=== PATIENT | female | born 1945 | race Caucasian/White ===

== ENCOUNTER 2016-07-21 18:55 | Emergency (ER) | payer BC ==
--- NOTE | 2016-07-21 20:17 | DIAGNOSTIC IMAGING REPORT ---
PROCEDURE: XR CHEST 1 VIEW INDICATION: SHORTNESS OF BREATH TECHNIQUE: Portable AP view (194 hours). COMPARISON: None. FINDINGS: Mild elevation or eventration of the hemidiaphragm is most likely chronic. Lungs are clear. Heart and mediastinum are normal. Mild degenerative changes of the thoracic spine. IMPRESSION: 1. Negative chest.
--- NOTE | 2016-07-21 21:12 | ED CLINICAL REPORT ---
Clinical Report - Physicians/Mid Levels [facility] [address], [place] [address] 07/21/2016 18:56 Patient: LIZ LOPEZ Time Seen: 19:34; initial patient contact. Arrived- By private vehicle. Historian- patient. HISTORY OF PRESENT ILLNESS Chief Complaint: HISTORY OF ASTHMA. This started about 3 days ago and is still present (persistent). It was gradual in onset and has been constant. The dyspnea is described as moderate. The dyspnea is worsened by cough (Better w/ rescue inhaler). No improvement of dyspnea with rest. The patient has had a cough and wheezing. No sputum production, fever, sweating episodes, chills or dyspnea on exertion. No chest pain or discomfort, calf pain, foot swelling or palpitations. Similar symptoms previously: Several times. Recent medical care: Not recently seen/assessed. REVIEW OF SYSTEMS No eye irritation, nausea, vomiting or headache. She has had a nasal discharge and sinus drainage. All systems otherwise negative, except as recorded above. PAST HISTORY ADHD - Attention Deficit Hyperactivity Disorder. Hypertension. SURGERIES: Appendectomy. B/L Foot Sx. Cholecystectomy. Hysterectomy. R Knee Sx. Medications: FLUoxetine HCl Oral. Aspirin Oral. Lisinopril Oral. Albuterol Sulfate Inhalation. Ipratropium [place] Inhalation. Allergies: Codeine. morphine. Penicillin. SOCIAL HISTORY Never smoker. No alcohol use or drug use. ADDITIONAL NOTES The nursing notes have been reviewed. PHYSICAL EXAM Vital Signs: 07/21/2016 19:05 BP: 169/64. HR: 82. RR: 22. O2 saturation: 96%. Temp: 98.6 F. Pain level now: 0/10. Have been reviewed. Hypertensive. Heart rate normal. Tachypneic. Temperature normal. Appearance: Alert. No acute distress. Eyes: Eyes normal inspection. ENT: Ears normal. Nose normal. Pharynx normal. Neck: Normal inspection. No jugular venous distention. CVS: Normal heart rate and rhythm. Heart sounds normal. Respiratory: No respiratory distress. Breath sounds normal. Skin: Skin warm and dry. Normal skin color. Extremities: No calf tenderness. No lower extremity edema. Neuro: Oriented X 3. No motor deficit. PROGRESS AND PROCEDURES Disposition: Discharged home in good and improved condition. Condition: good. CLINICAL IMPRESSION Mild persistent asthma with an acute exacerbation. No status asthmaticus, pneumonia, hypoxemia or acute respiratory failure. INSTRUCTIONS Avoid tobacco smoke. Your Current Medications: CONTINUE TAKING THE FOLLOWING MEDICATIONS: Albuterol Sulfate Inhalation. Aspirin Oral. FLUoxetine HCl Oral. Ipratropium [place] Inhalation. Lisinopril Oral. Prescription Medications: Tessalon Perles 100 mg: take 1 orally every 6 hours as needed for cough. Dispense fifteen (15). No refills. Substitution is permissible. Prednisone 20 mg: take 2 orally every day for 4 days. Dispense sufficient quantity. No refills. (Start on 07/22/16) Follow-up: Follow up with your doctor in about two days. Call for an appointment. Blood pressure screening was not performed during this visit because the patient has an active diagnosis of hypertension. (Electronically signed by Rebel Cho Dr. 07/21/2016 21:14)
--- NOTE | 2016-07-21 21:12 | ED NURSING NOTES ---
Clinical Report - Nurses [facility] [address] [place] [address] 07/21/2016 18:56 Patient: LIZ LOPEZ TRIAGE Triage time 19:00. Acuity: LEVEL 3. Chief Complaint: SHORTNESS OF BREATH and DIFFICULTY BREATHING. 19:13 07/21/16. Alert. No acute distress. SEPSIS SCREEN: Sepsis Screen. Negative (no infection suspected/documented). TRAVIS COMA SCORE: [place] Coma Scale: 15- eyes open spontaneously (4); best verbal response- oriented x 4 (5); best motor response- obeys commands (6). --19:13 Cecilia Busby R.N. 19:05 07/21/16. BP: 169/64. HR: 82. RR: 22. O2 saturation: 96%. Temp: 98.6 F. Pain level now: 0/10. --19:13 Cecilia Busby R.N. Weight: 91.1 kg stated. Height/Length: 64 inches Per Patient. BMI: 34.5. --19:12 Cecilia Busby R.N. Medications Ipratropium [place] Inhalation. --19:07 Cecilia Busby R.N. Albuterol Sulfate Inhalation. --19:07 Cecilia Busby R.N. Lisinopril Oral. --19:07 Cecilia Busby R.N. Aspirin Oral. --19:07 Cecilia Busby R.N. FLUoxetine HCl Oral. --19:08 Cecilia Busby R.N. Allergies Codeine. morphine. Penicillin. --19:08 Cecilia Busby R.N. History Arrived by private vehicle. Historian: patient and family. Accompanied by family. Primary physician ([facility]). This started today. ( Patient's states she has had a cold for a few days and her breathing has progressively worsened.). She has had a cough. ( Patient states she feels "like someone is sitting on my chest"). 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 PAST MEDICAL HX: Immunizations: up-to-date. Denies current . ( Patient states she has been told that she has had asthma and that she does not. Patient's states the albuterol often helps when she is short of breath.). SOCIAL HX: Never smoker. No alcohol use or drug use. FALL RISK ASSESSMENT: Fall risk assessment completed. No fall risk identified. NUTRITIONAL RISK ASSESSMENT: The nutritional risk assessment revealed no deficiencies. FUNCTIONAL ASSESSMENT: Functional assessment: no impairments noted. LEARNING NEEDS ASSESSMENT: The learning needs assessment revealed no barriers. SKIN INTEGRITY ASSESSMENT: Skin integrity risk assessment completed. No skin integrity risk identified. --19:13 Cecilia Busby R.N. PROBLEMS: ADHD - Attention Deficit Hyperactivity Disorder. Hypertension. --19:08 Cecilia Busby R.N. ADDITIONAL SURGERIES: Appendectomy. B/L Foot Sx. Cholecystectomy. Hysterectomy. R Knee Sx. --19:08 Cecilia Busby R.N. Interventions ID band on patient. To treatment room. --19:13 Cecilia Busby R.N. PHYSICAL ASSESSMENT 19:21 07/21/16. Ambulatory to room. GENERAL / NEURO / PSYCH: Alert. Oriented X 4. Appears in distress. HEENT: Mucous membranes are pink. RESPIRATORY: Mild respiratory distress. The patient can speak in full sentences. Cough productive of white sputum. Expiratory bilateral wheezes diffusely. CVS: Capillary refill less than 2 seconds. GI / : Abdomen soft and nontender. SKIN: Skin is warm and dry. Normal skin turgor. --19:21 Cecilia Busby R.N. NURSING PROGRESS NOTES Pulse oximeter and NIBP monitor placed on patient. Patient gowned. Head of bed elevated. Two patient identifiers checked. Call light placed in reach. Bed placed in lowest position. Brakes of bed on. Patient ready for evaluation- chart flagged and notification provided. Patient informed about reason for wait and about plan of care. --19:22 Cecilia Busby R.N. 19:15 07/21/2016 Site #1 started via IV in the left hand with an 20g angiocath; one attempt. Blood drawn: rainbow set. Labeled in the presence of the patient and sent to the lab. Saline lock flushed with 10 mL saline. --20:45 Cecilia Busby R.N. 20:06 07/21/2016 Prednisone PO Tablets 40 mg given. Allergies verified and confirmed 5 rights. --20:06 Cecilia Busby R.N. 20:45 07/21/2016 Benadryl (DiphenhydrAMINE HCl) IVP 25 mg given over 2 minute(s) via site #1. Allergies verified, confirmed 5 rights and sedative warning given to the patient. IV patency established. IV site checked: no pain, redness, or swelling. IV flushed thoroughly pre- and post-medication administration. IVP given by RN. --20:45 Cecilia Busby R.N. 20:46 07/21/16. BP: 147/58. HR: 77. RR: 20. O2 saturation: 96%. Temp: deferred. Pain level now: 0/10. --20:46 Cecilia Busby R.N. DISPOSITION / DISCHARGE 21:40 07/21/16. No learning barriers present. Discharge instructions provided and reviewed with the patient and spouse. Reviewed warnings. Reviewed medication(s). Treatments reviewed. Patient and spouse verbalized understanding. Written instructions provided in [place]. The patient was discharged home and accompanied by spouse. She left the Emergency Department ambulatory and via private vehicle. Spouse driving. --21:40 Cecilia Busby R.N. 20:46 07/21/16. BP: 147/58. HR: 77. RR: 20. O2 saturation: 96%. Temp: deferred. Pain level now: 0/10. --21:40 Cecilia Busby R.N. Locked/Released at 07/22/2016 0:34 by Cecilia Busby R.N.
--- NOTE | 2016-07-21 21:12 | ED CLINICAL REPORT ---
Clinical Report - Physicians/Mid Levels [facility] [address], [place] [address] 07/21/2016 18:56 Patient: LIZ LOPEZ Time Seen: 19:34; initial patient contact. Arrived- By private vehicle. Historian- patient. HISTORY OF PRESENT ILLNESS Chief Complaint: HISTORY OF ASTHMA. This started about 3 days ago and is still present (persistent). It was gradual in onset and has been constant. The dyspnea is described as moderate. The dyspnea is worsened by cough (Better w/ rescue inhaler). No improvement of dyspnea with rest. The patient has had a cough and wheezing. No sputum production, fever, sweating episodes, chills or dyspnea on exertion. No chest pain or discomfort, calf pain, foot swelling or palpitations. Similar symptoms previously: Several times. Recent medical care: Not recently seen/assessed. REVIEW OF SYSTEMS No eye irritation, nausea, vomiting or headache. She has had a nasal discharge and sinus drainage. All systems otherwise negative, except as recorded above. PAST HISTORY ADHD - Attention Deficit Hyperactivity Disorder. Hypertension. SURGERIES: Appendectomy. B/L Foot Sx. Cholecystectomy. Hysterectomy. R Knee Sx. Medications: FLUoxetine HCl Oral. Aspirin Oral. Lisinopril Oral. Albuterol Sulfate Inhalation. Ipratropium [place] Inhalation. Allergies: Codeine. morphine. Penicillin. SOCIAL HISTORY Never smoker. No alcohol use or drug use. ADDITIONAL NOTES The nursing notes have been reviewed. PHYSICAL EXAM Vital Signs: 07/21/2016 19:05 BP: 169/64. HR: 82. RR: 22. O2 saturation: 96%. Temp: 98.6 F. Pain level now: 0/10. Have been reviewed. Hypertensive. Heart rate normal. Tachypneic. Temperature normal. Appearance: Alert. No acute distress. Eyes: Eyes normal inspection. ENT: Ears normal. Nose normal. Pharynx normal. Neck: Normal inspection. No jugular venous distention. CVS: Normal heart rate and rhythm. Heart sounds normal. Respiratory: No respiratory distress. Breath sounds normal. Skin: Skin warm and dry. Normal skin color. Extremities: No calf tenderness. No lower extremity edema. Neuro: Oriented X 3. No motor deficit. PROGRESS AND PROCEDURES Disposition: Discharged home in good and improved condition. Condition: good. CLINICAL IMPRESSION Mild persistent asthma with an acute exacerbation. No status asthmaticus, pneumonia, hypoxemia or acute respiratory failure. INSTRUCTIONS Avoid tobacco smoke. Your Current Medications: CONTINUE TAKING THE FOLLOWING MEDICATIONS: Albuterol Sulfate Inhalation. Aspirin Oral. FLUoxetine HCl Oral. Ipratropium [place] Inhalation. Lisinopril Oral. Prescription Medications: Tessalon Perles 100 mg: take 1 orally every 6 hours as needed for cough. Dispense fifteen (15). No refills. Substitution is permissible. Prednisone 20 mg: take 2 orally every day for 4 days. Dispense sufficient quantity. No refills. (Start on 07/22/16) Follow-up: Follow up with your doctor in about two days. Call for an appointment. Blood pressure screening was not performed during this visit because the patient has an active diagnosis of hypertension. (Electronically signed by Rebel Cho Dr. 07/21/2016 21:14)
--- NOTE | 2016-07-21 21:12 | ED ORDER SUMMARY ---
..... Patient: LIZ LOPEZ OrderSheet [facility] VisitID: [id number] [place] [address] 71y, F Registration Date/Time: 07/21/2016 ORDER SHEET Weight: 91.1 kg (stated) Allergies: Codeine, morphine, Penicillin GENERAL ORDERS: Chest 1V Urgent (19:41 07/21/2016 Aurora Panda) (Ack 19:43 AMcQuoid ER Tech1) (19:48 RFay) MEDICATION ORDERS: Prednisone PO 40 mg (NOW) (19:41 07/21/2016 Aurora Panda) (Ack 20:02 RMarsden R.N.) (20:06 RMarsden R.N.) IV FLUIDS: Benadryl IV 25 mg (NOW) (20:39 07/21/2016 Aurora Panda) (Ack 20:39 RMarsden R.N.) (20:45 RMarsden R.N.) ORDER SHEET NOTES: [Electronically signed by Rebel Cho Dr. (21:14 07/21/2016)] [Electronically signed by Cecilia Busby R.N. (00:34 07/22/2016)] [Electronically locked/signed by Cecilia Busby R.N. (00:34 07/22/2016)]
--- NOTE | 2016-07-21 21:12 | ED NURSING NOTES ---
Clinical Report - Nurses [facility] [address] [place] [address] 07/21/2016 18:56 Patient: LIZ LOPEZ TRIAGE Triage time 19:00. Acuity: LEVEL 3. Chief Complaint: SHORTNESS OF BREATH and DIFFICULTY BREATHING. 19:13 07/21/16. Alert. No acute distress. SEPSIS SCREEN: Sepsis Screen. Negative (no infection suspected/documented). TRAVIS COMA SCORE: [place] Coma Scale: 15- eyes open spontaneously (4); best verbal response- oriented x 4 (5); best motor response- obeys commands (6). --19:13 Cecilia Busby R.N. 19:05 07/21/16. BP: 169/64. HR: 82. RR: 22. O2 saturation: 96%. Temp: 98.6 F. Pain level now: 0/10. --19:13 Cecilia Busby R.N. Weight: 91.1 kg stated. Height/Length: 64 inches Per Patient. BMI: 34.5. --19:12 Cecilia Busby R.N. Medications Ipratropium [place] Inhalation. --19:07 Cecilia Busby R.N. Albuterol Sulfate Inhalation. --19:07 Cecilia Busby R.N. Lisinopril Oral. --19:07 Cecilia Busby R.N. Aspirin Oral. --19:07 Cecilia Busby R.N. FLUoxetine HCl Oral. --19:08 Cecilia Busby R.N. Allergies Codeine. morphine. Penicillin. --19:08 Cecilia Busby R.N. History Arrived by private vehicle. Historian: patient and family. Accompanied by family. Primary physician ([facility]). This started today. ( Patient's states she has had a cold for a few days and her breathing has progressively worsened.). She has had a cough. ( Patient states she feels "like someone is sitting on my chest"). Treatment SCHEDULING CLERK: (albuterol, ipatropium). PAST MEDICAL HX: Immunizations: up-to-date. Denies current . ( Patient states she has been told that she has had asthma and that she does not. Patient's states the albuterol often helps when she is short of breath.). SOCIAL HX: Never smoker. No alcohol use or drug use. FALL RISK ASSESSMENT: Fall risk assessment completed. No fall risk identified. NUTRITIONAL RISK ASSESSMENT: The nutritional risk assessment revealed no deficiencies. FUNCTIONAL ASSESSMENT: Functional assessment: no impairments noted. LEARNING NEEDS ASSESSMENT: The learning needs assessment revealed no barriers. SKIN INTEGRITY ASSESSMENT: Skin integrity risk assessment completed. No skin integrity risk identified. --19:13 Cecilia Busby R.N. PROBLEMS: ADHD - Attention Deficit Hyperactivity Disorder. Hypertension. --19:08 Cecilia Busby R.N. ADDITIONAL SURGERIES: Appendectomy. B/L Foot Sx. Cholecystectomy. Hysterectomy. R Knee Sx. --19:08 Cecilia Busby R.N. Interventions ID band on patient. To treatment room. --19:13 Cecilia Busby R.N. PHYSICAL ASSESSMENT 19:21 07/21/16. Ambulatory to room. GENERAL / NEURO / PSYCH: Alert. Oriented X 4. Appears in distress. HEENT: Mucous membranes are pink. RESPIRATORY: Mild respiratory distress. The patient can speak in full sentences. Cough productive of white sputum. Expiratory bilateral wheezes diffusely. CVS: Capillary refill less than 2 seconds. GI / : Abdomen soft and nontender. SKIN: Skin is warm and dry. Normal skin turgor. --19:21 Cecilia Busby R.N. NURSING PROGRESS NOTES Pulse oximeter and NIBP monitor placed on patient. Patient gowned. Head of bed elevated. Two patient identifiers checked. Call light placed in reach. Bed placed in lowest position. Brakes of bed on. Patient ready for evaluation- chart flagged and notification provided. Patient informed about reason for wait and about plan of care. --19:22 Cecilia Busby R.N. 19:15 07/21/2016 Site #1 started via IV in the left hand with an 20g angiocath; one attempt. Blood drawn: rainbow set. Labeled in the presence of the patient and sent to the lab. Saline lock flushed with 10 mL saline. --20:45 Cecilia Busby R.N. 20:06 07/21/2016 Prednisone PO Tablets 40 mg given. Allergies verified and confirmed 5 rights. --20:06 Cecilia Busby R.N. 20:45 07/21/2016 Benadryl (DiphenhydrAMINE HCl) IVP 25 mg given over 2 minute(s) via site #1. Allergies verified, confirmed 5 rights and sedative warning given to the patient. IV patency established. IV site checked: no pain, redness, or swelling. IV flushed thoroughly pre- and post-medication administration. IVP given by RN. --20:45 Cecilia Busby R.N. 20:46 07/21/16. BP: 147/58. HR: 77. RR: 20. O2 saturation: 96%. Temp: deferred. Pain level now: 0/10. --20:46 Cecilia Busby R.N. DISPOSITION / DISCHARGE 21:40 07/21/16. No learning barriers present. Discharge instructions provided and reviewed with the patient and spouse. Reviewed warnings. Reviewed medication(s). Treatments reviewed. Patient and spouse verbalized understanding. Written instructions provided in [place]. The patient was discharged home and accompanied by spouse. She left the Emergency Department ambulatory and via private vehicle. Spouse driving. --21:40 Cecilia Busby R.N. 20:46 07/21/16. BP: 147/58. HR: 77. RR: 20. O2 saturation: 96%. Temp: deferred. Pain level now: 0/10. --21:40 Cecilia Busby R.N. Locked/Released at 07/22/2016 0:34 by Cecilia Busby R.N.
--- NOTE | 2016-07-21 21:12 | ED ORDER SUMMARY ---
..... Patient: LIZ LOPEZ OrderSheet [facility] VisitID: [id number] [place] [address] 71y, F Registration Date/Time: 07/21/2016 ORDER SHEET Weight: 91.1 kg (stated) Allergies: Codeine, morphine, Penicillin GENERAL ORDERS: Chest 1V Urgent (19:41 07/21/2016 Aurora Panda) (Ack 19:43 AMcQuoid ER Tech1) (19:48 RFay) MEDICATION ORDERS: Prednisone PO 40 mg (NOW) (19:41 07/21/2016 Aurora Panda) (Ack 20:02 RMarsden R.N.) (20:06 RMarsden R.N.) IV FLUIDS: Benadryl IV 25 mg (NOW) (20:39 07/21/2016 Aurora Panda) (Ack 20:39 RMarsden R.N.) (20:45 RMarsden R.N.) ORDER SHEET NOTES: [Electronically signed by Rebel Cho Dr. (21:14 07/21/2016)] [Electronically signed by Cecliia Busby R.N. (00:34 07/22/2016)] [Electronically locked/signed by Cecilia Busby R.N. (00:34 07/22/2016)]
--- NOTE | 2016-07-22 00:34 | ED DISCHARGE INSTRUCTIONS ---
Patient: LIZ LOPEZ General Instructions [facility] VisitID: [id number] [place] [address] 71y, F Registration Date/Time: 07/21/2016 Mild persistent asthma with an acute exacerbation. No status asthmaticus, pneumonia, hypoxemia or acute respiratory failure. INSTRUCTIONS Avoid tobacco smoke. Your Current Medications: CONTINUE TAKING THE FOLLOWING MEDICATIONS: Albuterol Sulfate Inhalation. Aspirin Oral. FLUoxetine HCl Oral. Ipratropium [place] Inhalation. Lisinopril Oral. Prescription Medications: Tessalon Perles 100 mg: take 1 orally every 6 hours as needed for cough. Dispense fifteen (15). No refills. Substitution is permissible. Prednisone 20 mg: take 2 orally every day for 4 days. Dispense sufficient quantity. No refills. (Start on 07/22/16) Follow-up: Follow up with your doctor in about two days. Call for an appointment. Blood pressure screening was not performed during this visit because the patient has an active diagnosis of hypertension. ADDITIONAL INFORMATION Asthma [Adult] Asthma is a disease where the small air passages within the lung go into spasm and restrict the flow of air. Inflammation and swelling of the airways cause further restriction. During an acute asthma attack, these factors cause difficulty breathing, wheezing, cough and chest tightness. An asthma attack can be triggered by many things. Common triggers include the common cold, bronchitis, pneumonia, irritants such as smoke or pullutants in the air, emotional upset and heavy exercise. Inmany adults with asthma, allergies todust, mold, pollen and animal dander can cause an asthma attack. Skipping doses of daily asthma medicine can also bring on an asthma attack. Asthma can be controlled with proper medicines and decreased exposure to known allergens. Home Care: Take prescribed medicine exactly at the times advised. If you have a hand-held inhaler or aerosol breathing medicine, do not use it more than once every four hours, unless told to do so. (If you need this medicine more than every four hours, you may need to return to the Emergency Room.) If prescribed an antibiotic or prednisone, take all of the medicine even if you are feeling better after a few days. Do not smoke. Avoid being exposed to the smoke of others. Some persons with asthma have worsening of their symptoms when they take aspirin and non-steroidal medicines like ibuprofen (Motrin, Advil) and naproxen (Aleve, Naprosyn). Talk to your doctor if you think this may apply to you. Acetaminophen (Tylenol)should be safe to use. Follow Up with your doctor, or as advised by our staff. Always bring all of your current medicines with you for your doctor to see. If you do not already have one, talk to your doctor about developing a personalized "Asthma Action Plan." [NOTE: A pneumococcal vaccine and yearly flu shot (every fall) are recommended. Ask your doctor about this.] Get Prompt Medical Attention if any of the following occur: Increased wheezing or shortness of breath Need to use your inhalers more often than usual without relief Fever of 100.4F (38C) or higher, or as directed by your healthcare provider Coughing up lots of dark-colored or bloody sputum (mucus) Chest pain with each breath You do not start to improve within 24 hours Call 911 If Any Of The Following Occur : Trouble walking or talking because of shortness of breath If you use a peak flow meter andyou are still in the red zone (less than 50 percent) 15 minutes after using inhaler medication Lips or fingernails turning razo or blue Benzonatate Oral capsule, liquid filled What is this medicine? BENZONATATE (dwayne WAYLON na mckoen) is used to treat cough. How should I use this medicine? Take this medicine by mouth with a glass of water. Follow the directions on the prescription label. Avoid breaking, chewing, or sucking the capsule, as this can cause serious side effects. Take your medicine at regular intervals. Do not take your medicine more often than directed. Talk to your chemical engineering intern regarding the use of this medicine in children. While this drug may be prescribed for children as young as 10 years old for selected conditions, precautions do apply. What side effects may I notice from receiving this medicine? Side effects that you should report to your doctor or health rn progressive care as soon as possible: allergic reactions like skin rash, itching or hives, swelling of the face, lips, or tongue breathing problems chest pain confusion or hallucinations irregular heartbeat numbness of mouth or throat seizures Side effects that usually do not require medical attention (report to your doctor or health rn progressive care if they continue or are bothersome): burning feeling in the eyes constipation headache nasal congestion stomach upset What may interact with this medicine? Do not take this medicine with any of the following medications: MAOIs like Carbex, Eldepryl, Marplan, Nardil, and Parnate What if I miss a dose? If you miss a dose, take it as soon as you can. If it is almost time for your next dose, take only that dose. Do not take double or extra doses. Where should I keep my medicine? Keep out of the reach of children. Store at room temperature between 15 and 30 degrees C (59 and 86 degrees F). Keep tightly closed. Protect from light and moisture. Throw away any unused medicine after the expiration date. What should I tell my health care provider before I take this medicine? They need to know if you have any of these conditions: kidney or liver disease an unusual or allergic reaction to benzonatate, anesthetics, other medicines, foods, dyes, or preservatives or trying to get breast-feeding What should I watch for while using this medicine? Tell your doctor if your symptoms do not improve or if they get worse. If you have a high fever, skin rash, or headache, see your health rn progressive care. You may get drowsy or dizzy. Do not drive, use machinery, or do anything that needs mental alertness until you know how this medicine affects you. Do not sit or stand up quickly, especially if you are an older patient. This reduces the risk of dizzy or fainting spells. Prednisone Oral tablet What is this medicine? PREDNISONE (PRED ni sone) is a corticosteroid. It is commonly used to treat inflammation of the skin, joints, lungs, and other organs. Common conditions treated include asthma, allergies, and arthritis. It is also used for other conditions, such as blood disorders and diseases of the adrenal glands. How should I use this medicine? Take this medicine by mouth with a glass of water. Follow the directions on the prescription label. Take this medicine with food. If you are taking this medicine once a day, take it in the morning. Do not take more medicine than you are told to take. Do not suddenly stop taking your medicine because you may develop a severe reaction. Your doctor will tell you how much medicine to take. If your doctor wants you to stop the medicine, the dose may be slowly lowered over time to avoid any side effects. Talk to your chemical engineering intern regarding the use of this medicine in children. Special care may be needed. What side effects may I notice from receiving this medicine? Side effects that you should report to your doctor or health rn progressive care as soon as possible: allergic reactions like skin rash, itching or hives, swelling of the face, lips, or tongue changes in emotions or moods changes in vision depressed mood eye pain fever or chills, cough, sore throat, pain or difficulty passing urine increased thirst swelling of ankles, feet Side effects that usually do not require medical attention (report to your doctor or health rn progressive care if they continue or are bothersome): confusion, excitement, restlessness headache nausea, vomiting skin problems, acne, thin and shiny skin trouble sleeping weight gain What may interact with this medicine? Do not take this medicine with any of the following medications: metyrapone mifepristone This medicine may also interact with the following medications: aminoglutethimide amphotericin B aspirin and aspirin-like medicines barbiturates certain medicines for diabetes, like glipizide or glyburide cholestyramine cholinesterase inhibitors cyclosporine digoxin diuretics ephedrine female hormones, like estrogens and control pills isoniazid ketoconazole NSAIDS, medicines for pain and inflammation, like ibuprofen or naproxen phenytoin rifampin toxoids vaccines warfarin What if I miss a dose? If you miss a dose, take it as soon as you can. If it is almost time for your next dose, talk to your doctor or health rn progressive care. You may need to miss a dose or take an extra dose. Do not take double or extra doses without advice. Where should I keep my medicine? Keep out of the reach of children. Store at room temperature between 15 and 30 degrees C (59 and 86 degrees F). Protect from light. Keep container tightly closed. Throw away any unused medicine after the expiration date. What should I tell my health care provider before I take this medicine? They need to know if you have any of these conditions: Jackson's syndrome diabetes glaucoma heart disease high blood pressure infection (especially a virus infection such as chickenpox, cold sores, or herpes) kidney disease liver disease mental illness myasthenia gravis osteoporosis seizures stomach or intestine problems thyroid disease an unusual or allergic reaction to lactose, prednisone, other medicines, foods, dyes, or preservatives or trying to get breast-feeding What should I watch for while using this medicine? Visit your doctor or health rn progressive care for regular checks on your progress. If you are taking this medicine over a prolonged period, carry an identification card with your name and address, the type and dose of your medicine, and your doctor's name and address. This medicine may increase your risk of getting an infection. Tell your doctor or health rn progressive care if you are around anyone with measles or chickenpox, or if you develop sores or blisters that do not heal properly. If you are going to have surgery, tell your doctor or health rn progressive care that you have taken this medicine within the last twelve months. Ask your doctor or health rn progressive care about your diet. You may need to lower the amount of salt you eat. This medicine may affect blood sugar levels. If you have diabetes, check with your doctor or health rn progressive care before you change your diet or the dose of your diabetic medicine. You have been given the following additional information: Asthma, Acute (Adult) Benzonatate Oral capsule, liquid filled Prednisone Oral tablet (Electronically signed by Rebel Cho Dr. 07/21/2016 21:14)
--- NOTE | 2016-07-22 00:34 | ED MAR SUMMARY ---
..... Medication Administration Record [facility] [address] [place] [address] Patient: LIZ LOPEZ Visit ID: [id number] 71y, F Weight: 91.1 kg Height/Length: 64 in BMI: 34.5 ALLERGIES: Codeine, morphine, Penicillin Given 20:06 07/21/2016 Cecilia Busby RMichelle Medication Administered: PREDNISONE [PO], Dose: 40 mg Tablets PO. Medication Ordered: Prednisone PO 40 mg (NOW). Given 20:45 07/21/2016 Cecilia Busby, RGiuliaN. Medication Administered: BENADRYL [IVP] (DIPHENHYDRAMINE HCL), Dose: 25 mg IVP over 2 minute(s), Site: #1 left hand. Medication Ordered: Benadryl IV 25 mg (NOW).
--- NOTE | 2016-07-22 00:34 | ED DISCHARGE INSTRUCTIONS ---
Patient: LIZ LOPEZ General Instructions [facility] VisitID: [id number] [place] [address] 71y, F Registration Date/Time: 07/21/2016 Mild persistent asthma with an acute exacerbation. No status asthmaticus, pneumonia, hypoxemia or acute respiratory failure. INSTRUCTIONS Avoid tobacco smoke. Your Current Medications: CONTINUE TAKING THE FOLLOWING MEDICATIONS: Albuterol Sulfate Inhalation. Aspirin Oral. FLUoxetine HCl Oral. Ipratropium [place] Inhalation. Lisinopril Oral. Prescription Medications: Tessalon Perles 100 mg: take 1 orally every 6 hours as needed for cough. Dispense fifteen (15). No refills. Substitution is permissible. Prednisone 20 mg: take 2 orally every day for 4 days. Dispense sufficient quantity. No refills. (Start on 07/22/16) Follow-up: Follow up with your doctor in about two days. Call for an appointment. Blood pressure screening was not performed during this visit because the patient has an active diagnosis of hypertension. ADDITIONAL INFORMATION Asthma [Adult] Asthma is a disease where the small air passages within the lung go into spasm and restrict the flow of air. Inflammation and swelling of the airways cause further restriction. During an acute asthma attack, these factors cause difficulty breathing, wheezing, cough and chest tightness. An asthma attack can be triggered by many things. Common triggers include the common cold, bronchitis, pneumonia, irritants such as smoke or pullutants in the air, emotional upset and heavy exercise. Inmany adults with asthma, allergies todust, mold, pollen and animal dander can cause an asthma attack. Skipping doses of daily asthma medicine can also bring on an asthma attack. Asthma can be controlled with proper medicines and decreased exposure to known allergens. Home Care: Take prescribed medicine exactly at the times advised. If you have a hand-held inhaler or aerosol breathing medicine, do not use it more than once every four hours, unless told to do so. (If you need this medicine more than every four hours, you may need to return to the Emergency Room.) If prescribed an antibiotic or prednisone, take all of the medicine even if you are feeling better after a few days. Do not smoke. Avoid being exposed to the smoke of others. Some persons with asthma have worsening of their symptoms when they take aspirin and non-steroidal medicines like ibuprofen (Motrin, Advil) and naproxen (Aleve, Naprosyn). Talk to your doctor if you think this may apply to you. Acetaminophen (Tylenol)should be safe to use. Follow Up with your doctor, or as advised by our staff. Always bring all of your current medicines with you for your doctor to see. If you do not already have one, talk to your doctor about developing a personalized "Asthma Action Plan." [NOTE: A pneumococcal vaccine and yearly flu shot (every fall) are recommended. Ask your doctor about this.] Get Prompt Medical Attention if any of the following occur: Increased wheezing or shortness of breath Need to use your inhalers more often than usual without relief Fever of 100.4F (38C) or higher, or as directed by your healthcare provider Coughing up lots of dark-colored or bloody sputum (mucus) Chest pain with each breath You do not start to improve within 24 hours Call 911 If Any Of The Following Occur : Trouble walking or talking because of shortness of breath If you use a peak flow meter andyou are still in the red zone (less than 50 percent) 15 minutes after using inhaler medication Lips or fingernails turning razo or blue Benzonatate Oral capsule, liquid filled What is this medicine? BENZONATATE (dwayne WAYLON na mckeon) is used to treat cough. How should I use this medicine? Take this medicine by mouth with a glass of water. Follow the directions on the prescription label. Avoid breaking, chewing, or sucking the capsule, as this can cause serious side effects. Take your medicine at regular intervals. Do not take your medicine more often than directed. Talk to your photonics engineering technologist regarding the use of this medicine in children. While this drug may be prescribed for children as young as 10 years old for selected conditions, precautions do apply. What side effects may I notice from receiving this medicine? Side effects that you should report to your doctor or health health care coordinator as soon as possible: allergic reactions like skin rash, itching or hives, swelling of the face, lips, or tongue breathing problems chest pain confusion or hallucinations irregular heartbeat numbness of mouth or throat seizures Side effects that usually do not require medical attention (report to your doctor or health health care coordinator if they continue or are bothersome): burning feeling in the eyes constipation headache nasal congestion stomach upset What may interact with this medicine? Do not take this medicine with any of the following medications: MAOIs like Carbex, Eldepryl, Marplan, Nardil, and Parnate What if I miss a dose? If you miss a dose, take it as soon as you can. If it is almost time for your next dose, take only that dose. Do not take double or extra doses. Where should I keep my medicine? Keep out of the reach of children. Store at room temperature between 15 and 30 degrees C (59 and 86 degrees F). Keep tightly closed. Protect from light and moisture. Throw away any unused medicine after the expiration date. What should I tell my health care provider before I take this medicine? They need to know if you have any of these conditions: kidney or liver disease an unusual or allergic reaction to benzonatate, anesthetics, other medicines, foods, dyes, or preservatives or trying to get breast-feeding What should I watch for while using this medicine? Tell your doctor if your symptoms do not improve or if they get worse. If you have a high fever, skin rash, or headache, see your health health care coordinator. You may get drowsy or dizzy. Do not drive, use machinery, or do anything that needs mental alertness until you know how this medicine affects you. Do not sit or stand up quickly, especially if you are an older patient. This reduces the risk of dizzy or fainting spells. Prednisone Oral tablet What is this medicine? PREDNISONE (PRED ni sone) is a corticosteroid. It is commonly used to treat inflammation of the skin, joints, lungs, and other organs. Common conditions treated include asthma, allergies, and arthritis. It is also used for other conditions, such as blood disorders and diseases of the adrenal glands. How should I use this medicine? Take this medicine by mouth with a glass of water. Follow the directions on the prescription label. Take this medicine with food. If you are taking this medicine once a day, take it in the morning. Do not take more medicine than you are told to take. Do not suddenly stop taking your medicine because you may develop a severe reaction. Your doctor will tell you how much medicine to take. If your doctor wants you to stop the medicine, the dose may be slowly lowered over time to avoid any side effects. Talk to your photonics engineering technologist regarding the use of this medicine in children. Special care may be needed. What side effects may I notice from receiving this medicine? Side effects that you should report to your doctor or health health care coordinator as soon as possible: allergic reactions like skin rash, itching or hives, swelling of the face, lips, or tongue changes in emotions or moods changes in vision depressed mood eye pain fever or chills, cough, sore throat, pain or difficulty passing urine increased thirst swelling of ankles, feet Side effects that usually do not require medical attention (report to your doctor or health health care coordinator if they continue or are bothersome): confusion, excitement, restlessness headache nausea, vomiting skin problems, acne, thin and shiny skin trouble sleeping weight gain What may interact with this medicine? Do not take this medicine with any of the following medications: metyrapone mifepristone This medicine may also interact with the following medications: aminoglutethimide amphotericin B aspirin and aspirin-like medicines barbiturates certain medicines for diabetes, like glipizide or glyburide cholestyramine cholinesterase inhibitors cyclosporine digoxin diuretics ephedrine female hormones, like estrogens and control pills isoniazid ketoconazole NSAIDS, medicines for pain and inflammation, like ibuprofen or naproxen phenytoin rifampin toxoids vaccines warfarin What if I miss a dose? If you miss a dose, take it as soon as you can. If it is almost time for your next dose, talk to your doctor or health health care coordinator. You may need to miss a dose or take an extra dose. Do not take double or extra doses without advice. Where should I keep my medicine? Keep out of the reach of children. Store at room temperature between 15 and 30 degrees C (59 and 86 degrees F). Protect from light. Keep container tightly closed. Throw away any unused medicine after the expiration date. What should I tell my health care provider before I take this medicine? They need to know if you have any of these conditions: [place]'s syndrome diabetes glaucoma heart disease high blood pressure infection (especially a virus infection such as chickenpox, cold sores, or herpes) kidney disease liver disease mental illness myasthenia gravis osteoporosis seizures stomach or intestine problems thyroid disease an unusual or allergic reaction to lactose, prednisone, other medicines, foods, dyes, or preservatives or trying to get breast-feeding What should I watch for while using this medicine? Visit your doctor or health health care coordinator for regular checks on your progress. If you are taking this medicine over a prolonged period, carry an identification card with your name and address, the type and dose of your medicine, and your doctor's name and address. This medicine may increase your risk of getting an infection. Tell your doctor or health health care coordinator if you are around anyone with measles or chickenpox, or if you develop sores or blisters that do not heal properly. If you are going to have surgery, tell your doctor or health health care coordinator that you have taken this medicine within the last twelve months. Ask your doctor or health health care coordinator about your diet. You may need to lower the amount of salt you eat. This medicine may affect blood sugar levels. If you have diabetes, check with your doctor or health health care coordinator before you change your diet or the dose of your diabetic medicine. You have been given the following additional information: Asthma, Acute (Adult) Benzonatate Oral capsule, liquid filled Prednisone Oral tablet (Electronically signed by Rebel Cho Dr. 07/21/2016 21:14)
--- NOTE | 2016-07-22 00:34 | ED MAR SUMMARY ---
..... Medication Administration Record [facility] [address] [place] [address] Patient: LIZ LOPEZ Visit ID: [id number] 71y, F Weight: 91.1 kg Height/Length: 64 in BMI: 34.5 ALLERGIES: Codeine, morphine, Penicillin Given 20:06 07/21/2016 Cecilia Busby RMichelle Medication Administered: PREDNISONE [PO], Dose: 40 mg Tablets PO. Medication Ordered: Prednisone PO 40 mg (NOW). Given 20:45 07/21/2016 Cecilia Busby, RGiuliaN. Medication Administered: BENADRYL [IVP] (DIPHENHYDRAMINE HCL), Dose: 25 mg IVP over 2 minute(s), Site: #1 left hand. Medication Ordered: Benadryl IV 25 mg (NOW).
--- NOTE | 2016-07-22 00:34 | ED MED RECONCILIATION SUMMARY ---
Patient: LIZ LPOEZ Medication Reconciliation Report [facility] VisitID: [id number] [place] [address] 71y, F Registration Date/Time: 07/21/2016 Weight: 91.1 kg Height/Length: 64 in. BMI: 34.5 ALLERGIES: Codeine, morphine, Penicillin The patient's Home Medications are listed below: CONTINUE TAKING THE FOLLOWING MEDICATIONS: Albuterol Sulfate Inhalation Aspirin Oral FLUoxetine HCl Oral Ipratropium [place] Inhalation Lisinopril Oral The source(s) of the original Home Medication information: Not obtained. The following Medications were given to the patient in the Emergency Department: Prednisone [PO] PO 40 mg, administered: 07/21/2016 8:06:00 PM Benadryl [IVP] IVP 25 mg, administered: 07/21/2016 8:45:00 PM The following Medications were prescribed to the patient: Tessalon Perles 100 mg: take 1 orally every 6 hours as needed for cough. Dispense fifteen (15). No refills. Substitution is permissible. -- Rebel Cho Dr. Prednisone 20 mg: take 2 orally every day for 4 days. Dispense sufficient quantity. No refills.(Start on 07/22/16) -- Rebel Cho Dr.
--- NOTE | 2016-07-22 00:34 | ED MED RECONCILIATION SUMMARY ---
Patient: LIZ LOPEZ Medication Reconciliation Report [facility] VisitID: [id number] [place] [address] 71y, F Registration Date/Time: 07/21/2016 Weight: 91.1 kg Height/Length: 64 in. BMI: 34.5 ALLERGIES: Codeine, morphine, Penicillin The patient's Home Medications are listed below: CONTINUE TAKING THE FOLLOWING MEDICATIONS: Albuterol Sulfate Inhalation Aspirin Oral FLUoxetine HCl Oral Ipratropium [place] Inhalation Lisinopril Oral The source(s) of the original Home Medication information: Not obtained. The following Medications were given to the patient in the Emergency Department: Prednisone [PO] PO 40 mg, administered: 07/21/2016 8:06:00 PM Benadryl [IVP] IVP 25 mg, administered: 07/21/2016 8:45:00 PM The following Medications were prescribed to the patient: Tessalon Perles 100 mg: take 1 orally every 6 hours as needed for cough. Dispense fifteen (15). No refills. Substitution is permissible. -- Rebel Cho Dr. Prednisone 20 mg: take 2 orally every day for 4 days. Dispense sufficient quantity. No refills.(Start on 07/22/16) -- Rebel Cho Dr.
== END 2016-07-21 21:40 | disposition home or self-care (01) ==
LOC: ED SRH 18:55
DX: J45.31 Mild persistent asthma with (acute) exacerbation (principal); I10 Essential (primary) hypertension; Z79.899 Other long term (current) drug therapy; Z88.5 Allergy status to narcotic agent; Z88.0 Allergy status to penicillin